=== PATIENT | female | born 1980 | race Hispanic/Latino ===

== ENCOUNTER 2021-01-23 20:26 | Emergency (ER) | payer OTHER, SELFPAY ==
[2021-01-23 22:59] LABS: Absolute Lymphocytes (CBC) 2.5 K/uL (0.7-4.9); Basophils % 0.5 % (0-1.3); Hematocrit 39.3 % (36.0-45.0); Lymphocytes % 23.5 % (15.3-44.8); MPV 6.4 fL (7.6-11.3); RBC Red Blood Cell Count 4.62 M/uL (3.86-4.86)
[2021-01-23 23:13] LABS: ALT/SGPT 25 U/L (12-78); AST/SGOT 12 U/L (15-37); Albumin 3.6 g/dL (3.4-5.0); Alkaline Phosphatase 64 U/L (45-117); BUN Blood Urea Nitrogen 17 mg/dL (7-18); Bicarbonate 27 mmol/L (21-32); Bilirubin Direct < 0.1 mg/dL (0-0.2); Bilirubin Total 0.3 mg/dL (0.2-1.0); Glucose Level 98 mg/dL (74-106); Lipase 132 U/L (73-393); Potassium 4.2 mmol/L (3.5-5.1); Protein, Total 8.1 g/dL (6.4-8.2); Sodium Level 137 mmol/L (136-145)
[2021-01-23] MEDS ORDERED: ONDANSETRON 4 MG/2 ML VIAL ONE ×2 (23:24→23:29)
[2021-01-23] MEDS ORDERED: MORPHINE 4 MG/ML SYR ONE ×2 (23:24→23:29)
[2021-01-23] MEDS ORDERED: NA CHLORIDE 0.9% 1,000 ML ONE ×2 (23:24→23:29)
[2021-01-24 00:17] LABS: Urine Blood Negative (Negative); Urine Glucose Negative (Negative); Urine Protein Negative (Negative)
[2021-01-24 01:05] LABS: Protime INR 0.97
--- NOTE | 2021-01-24 01:30 | EDPHYS ---
Physician Documentation [facility] Name: Keena Roberson Age: 40 yrs Sex: Female : 1980 Arrival Date: 01/23/2021 Time: 20:28 Bed 13 Private MD: ED Physician Lisandra Medel HPI: 01/23 23:10 This 40 yrs old Female presents to ER via Ambulatory with complaints of ma2 Breathing Difficulty, ENLARGED LIVER. 23:10 This 40 yrs old Female presents to ER via Ambulatory with complaints of ma2 Breathing Difficulty, ENLARGED LIVER. 23:10 The patient has shortness of breath with light activity. Onset: The symptoms/episode ma2 began/occurred gradually, 2 week(s) ago. Associated signs and symptoms: Pertinent positives: right upper abd pain, patient had lap nir done yrs ago , Pertinent negatives: productive cough, dizziness, hemoptysis, nausea, numbness in extremities, visual changes. Severity of symptoms: At their worst the symptoms were very mild in the emergency department the symptoms are unchanged. Historical: - Allergies: 20:41 Zoloft; bs2 20:41 tramadol; bs2 - Home Meds: 20:41 Wellbutrin 300mg Oral 1 tab daily [Active]; bs2 - PMHx: 20:41 Depression; Shingles; enlarged liver; insulin resistance; bs2 - PSHx: 20:41 section; Cholecystectomy; bs2 - Immunization history:: Client reports having NOT received the Covid vaccine. Flu vaccine is not up to date. - Social history:: Smoking status: Patient reports the use of cigarette tobacco products, Patient/guardian denies using tobacco, Stopped _ months ago 2. - Family history:: not pertinent. ROS: 23:10 Constitutional: Negative for fever, chills, and weight loss. ma2 23:10 All other systems are negative. Exam: 23:10 Constitutional: This is a well developed, well nourished patient who is awake, alert, ma2 and in no acute distress. Head/Face: Normocephalic, atraumatic. Eyes: Pupils equal round and reactive to light, extra-ocular motions intact. Lids and lashes normal. Conjunctiva and sclera are non-icteric and not injected. Cornea within normal limits. Periorbital areas with no swelling, redness, or edema. ENT: Nares patent. No nasal discharge, no septal abnormalities noted. Tympanic membranes are normal and external auditory canals are clear. Oropharynx with no redness, swelling, or masses, exudates, or evidence of obstruction, uvula midline. Mucous membranes moist. Neck: Trachea midline, no thyromegaly or masses palpated, and no cervical lymphadenopathy. Supple, full range of motion without nuchal rigidity, or vertebral point tenderness. No Meningismus. Chest/axilla: Normal chest wall appearance and motion. Nontender with no deformity. No lesions are appreciated. Cardiovascular: Regular rate and rhythm with a normal S1 and S2. No gallops, murmurs, or rubs. Normal PMI, no JVD. No pulse deficits. Respiratory: Lungs have equal breath sounds bilaterally, clear to auscultation and percussion. No rales, rhonchi or wheezes noted. No increased work of breathing, no retractions or nasal flaring. Abdomen/GI: Soft, non-tender, with normal bowel sounds. No distension or tympany. No guarding or rebound. No evidence of tenderness throughout. Skin: Warm, dry with normal turgor. Normal color with no rashes, no lesions, and no evidence of cellulitis. MS/ Extremity: Pulses equal, no cyanosis. Neurovascular intact. Full, normal range of motion. Neuro: Awake and alert, GCS 15, oriented to person, place, time, and situation. Cranial nerves II-XII grossly intact. Motor strength 5/5 in all extremities. Sensory grossly intact. Cerebellar exam normal. Normal gait. Vital Signs: 20:39 BP 123 / 85; Pulse 98; Resp 23; Temp 98.8; Pulse Ox 100% on R/A; Weight 74.84 kg (R); bs2 Height 4 ft. 11 in. (149.86 cm) (R); Pain 10/10; 23:08 BP 102 / 75; Pulse 85; Resp 18 S; Pulse Ox 97% on R/A; ad5 07/ 00:21 BP 96 / 47; Pulse 80; Resp 18 S; Pulse Ox 99% on R/A; ad5 01:30 BP 108 / 63; Pulse 86; Resp 18 S; Pulse Ox 100% on R/A; ad5 01/23 20:39 Body Mass Index 33.33 (74.84 kg, 149.86 cm) bs2 MDM: 01/23 22:17 Patient medically screened. ma2 23:10 Differential diagnosis: Anxiety Reaction asthma, hepatitis vs liver disease. 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 which she does not use at this time. she also used to take "too much" acetaminophen over the last few months. 01/24 01:28 Data reviewed: vital signs, nurses notes. Counseling: I had a detailed discussion with bal the patient and/or guardian regarding: the historical points, exam findings, and any diagnostic results supporting the discharge/admit diagnosis, the presence of at least one elevated blood pressure reading (>120/80) during this emergency department visit, the need for outpatient follow up. Response to treatment: the patient's symptoms have markedly improved after treatment. 01/23 22:16 Order name: Basic Metabolic Panel; Complete Time: 23:44 [facility] 01/23 22:16 Order name: CBC with Diff; Complete Time: 23:30 [facility] 01/23 22:16 Order name: Hepatic Function; Complete Time: 23:44 [facility] 01/23 22:16 Order name: Lipase; Complete Time: 23:44 [facility] 01/23 23:13 Order name: PT-INR [facility] 01/23 22:41 Order name: CT Abd/Pelvis - IV Contrast Only [facility] 01/23 23:13 Order name: Protime (+INR); Complete Time: 01:30 [facility] 01/23 23:18 Order name: Acetaminophen Level; Complete Time: 23:44 [facility] 01/24 00:17 Order name: Urine Dipstick-Ancillary; Complete Time: 01:06 [facility] 01/24 00:17 Order name: Urine --Ancillary (enter results) [facility] 01/23 22:16 Order name: IV Saline Lock; Complete Time: 22:44 [facility] 01/23 22:16 Order name: Labs collected and sent; Complete Time: 22:44 [facility] 01/23 22:16 Order name: Urine Dipstick-Ancillary (obtain specimen); Complete Time: 00:22 [facility] Administered Medications: 01/23 23:07 Drug: Zofran (Ondansetron) 4 mg Route: IVP; Site: left antecubital; ad5 01/24 00:22 Follow up: Response: No adverse reaction ad5 01/23 23:07 Drug: morphine 4 mg {Note: RASS 0.} Route: IVP; Site: left antecubital; ad5 01/24 00:21 Follow up: Response: No adverse reaction; Pain is decreased; RASS: Alert and Calm (0) ad5 01/23 23:07 Drug: NS 0.9% 1000 ml Route: IV; Rate: 1 bolus; Site: left antecubital; ad5 01/24 01:53 Follow up: IV Status: Completed infusion; IV Intake: 1000ml ad5 Disposition Summary: 01/24/21 01:29 Discharge Ordered Location: Home ma2 Condition: Stable ma2 Diagnosis - Abdominal pain, Generalized ma2 Followup: ma2 - With: Private Physician - When: Tomorrow - Reason: If symptoms return Followup: ma2 - With: Selvin Chi MD - When: Tomorrow - Reason: Continuance of care Discharge Instructions: - Discharge Summary Sheet ma2 - Abdominal Pain, Adult ma2 Forms: - Medication Reconciliation Form ma2 - Thank You Letter ma2 - Antibiotic Education ma2 - Prescription Opioid Use ma2 Prescriptions: - Zofran 4 mg Oral Tablet - take 1 tablet by ORAL route every 12 hours As needed; 20 tablet; Refills: 0, ma2 Product Selection Permitted - Diclofenac Sodium 75 mg Oral Tablet Sustained Release - take 1 tablet by ORAL route 2 times per day; 30 tablet; Refills: 0, Product ma2 Selection Permitted Signatures: Dispatcher [employer] EDMS Lisandra Medel MD MD ma2 Gregorio Marroquin Bridget bs2 Corrections: (The following items were deleted from the chart) 01/23 20:44 20:41 Allergies: No Known Allergies; bs2 bs2 23:17 23:13 ACETAMINOPHEN+C.LAB.BRZ ordered. EDMS EDMS
--- NOTE | 2021-01-24 01:30 | ER ---
Nurse's Notes [facility] Name: Keena Roberson Age: 40 yrs Sex: Female : 1980 Arrival Date: 01/23/2021 Time: 20:28 Bed 13 Private MD: Diagnosis: Abdominal pain, Generalized Presentation: 01/23 20:39 Chief complaint: Patient states: pt states she has an enlarged liver, painful for last bs2 3 days, SOB. Coronavirus screen: Client denies travel out of the [place] in the last 14 days. At this time, the client does not indicate any symptoms associated with coronavirus-19. Ebola Screen: Patient negative for fever greater than or equal to 101.5 degrees Fahrenheit, and additional compatible Ebola Virus Disease symptoms Patient denies exposure to infectious person. Patient denies travel to an Ebola-affected area in the 21 days before illness onset. Initial Sepsis Screen: Does the patient meet any 2 criteria? RR > 20 per min. HR > 90 bpm. Does the patient have a suspected source of infection? No. Patient's initial sepsis screen is negative. Risk Assessment: Do you want to hurt yourself or someone else? Patient reports no desire to harm self or others. Onset of symptoms was January 20, 2021. 20:39 Method Of Arrival: Ambulatory bs2 20:39 Acuity: NARAYAN 3 bs2 Triage Assessment: 20:41 General: Appears distressed, uncomfortable, obese, well groomed, well developed, well bs2 nourished, Behavior is cooperative, appropriate for age, anxious, crying. Pain: Complains of pain in anterior aspect of right lateral abdomen and right upper quadrant. Respiratory: Reports shortness of breath at rest Onset: The symptoms/episode began/occurred gradually, the patient has mild shortness of breath. Historical: - Allergies: 20:41 Zoloft; bs2 20:41 tramadol; bs2 - Home Meds: 20:41 Wellbutrin 300mg Oral 1 tab daily [Active]; bs2 - PMHx: 20:41 Depression; Shingles; enlarged liver; insulin resistance; bs2 - PSHx: 20:41 section; Cholecystectomy; bs2 - Immunization history:: Client reports having NOT received the Covid vaccine. Flu vaccine is not up to date. - Social history:: Smoking status: Patient reports the use of cigarette tobacco products, Patient/guardian denies using tobacco, Stopped _ months ago 2. - Family history:: not pertinent. Screenin:44 Abuse screen: Denies threats or abuse. Denies injuries from another. Nutritional ad5 screening: No deficits noted. Tuberculosis screening: No symptoms or risk factors identified. Fall Risk None identified. Assessment: 22:30 General: Appears uncomfortable, Behavior is calm, cooperative, appropriate for age. ad5 Pain: Complains of pain in RUQ abd, radiates to back. Cardiovascular: No deficits noted. Heart tones present Capillary refill < 3 seconds Patient's skin is warm and dry. Rhythm is regular. Respiratory: No deficits noted. Airway is patent Respiratory effort is even, unlabored, Breath sounds are clear bilaterally. GI: Abdomen is round Bowel sounds present X 4 quads. Abdomen is tender to palpation in epigastric area and right upper quadrant Reports upper abdominal pain, nausea. : No deficits noted. No signs and/or symptoms were reported regarding the genitourinary system. Derm: Skin is pink, warm \T\ dry. 23:30 Reassessment: Patient appears in no apparent distress at this time. No changes from ad5 previously documented assessment. Patient and/or family updated on plan of care and expected duration. Pain level reassessed. Patient is alert, oriented x 3, equal unlabored respirations, skin warm/dry/pink. 01/24 00:21 Reassessment: Patient appears in no apparent distress at this time. Patient and/or ad5 family updated on plan of care and expected duration. Pain level reassessed. Patient states symptoms have improved. 01:45 Reassessment: Patient appears in no apparent distress at this time. Patient and/or ad5 family updated on plan of care and expected duration. Pain level reassessed. Patient is alert, oriented x 3, equal unlabored respirations, skin warm/dry/pink. Patient states feeling better. Vital Signs: 01/23 20:39 BP 123 / 85; Pulse 98; Resp 23; Temp 98.8; Pulse Ox 100% on R/A; Weight 74.84 kg (R); bs2 Height 4 ft. 11 in. (149.86 cm) (R); Pain 10/10; 23:08 BP 102 / 75; Pulse 85; Resp 18 S; Pulse Ox 97% on R/A; ad5 07/01 00:21 BP 96 / 47; Pulse 80; Resp 18 S; Pulse Ox 99% on R/A; ad5 01:30 BP 108 / 63; Pulse 86; Resp 18 S; Pulse Ox 100% on R/A; ad5 01/23 20:39 Body Mass Index 33.33 (74.84 kg, 149.86 cm) bs2 ED Course: 01/23 20:28 Patient arrived in ED. es 20:41 Triage completed. bs2 20:41 Arm band placed on left wrist. bs2 22:16 Lisandra Medel MD is Attending Physician. ma2 22:19 Gregorio Marroquin is Primary Nurse. ad5 22:30 Patient has correct armband on for positive identification. Placed in gown. Bed in low ad5 position. Call light in reach. Side rails up X2. Adult w/ patient. Pulse ox on. NIBP on. Door closed. Noise minimized. Warm blanket given. Head of bed lowered. 23:42 CT Abd/Pelvis - IV Contrast Only Sent. ad5 01/24 00:19 CT Abd/Pelvis - IV Contrast Only In Process Unspecified. EDMS 01:29 Selvin Chi MD is Referral Physician. ma2 01:59 No provider procedures requiring assistance completed. IV discontinued, intact, ad5 bleeding controlled, No redness/swelling at site. Pressure dressing applied. Administered Medications: 01/23 23:07 Drug: Zofran (Ondansetron) 4 mg Route: IVP; Site: left antecubital; ad5 01/24 00:22 Follow up: Response: No adverse reaction ad5 01/23 23:07 Drug: morphine 4 mg {Note: RASS 0.} Route: IVP; Site: left antecubital; ad5 01/24 00:21 Follow up: Response: No adverse reaction; Pain is decreased; RASS: Alert and Calm (0) ad5 01/23 23:07 Drug: NS 0.9% 1000 ml Route: IV; Rate: 1 bolus; Site: left antecubital; ad5 01/24 01:53 Follow up: IV Status: Completed infusion; IV Intake: 1000ml ad5 Intake: 01:53 IV: 1000ml; Total: 1000ml. ad5 Outcome: :29 Discharge ordered by . ma2 01:59 Discharged to home ambulatory, with family. ad5 01:59 Condition: stable 01:59 Discharge instructions given to patient, Instructed on discharge instructions, follow up and referral plans. medication usage, Demonstrated understanding of instructions, follow-up care, medications, Prescriptions given X 2. 02:00 Patient left the ED. ad5 Signatures: Dispatcher [employer] Neetu Polanco Mohammad, MD MD ma2 Gregorio Marroquin Bridget bs2 Corrections: (The following items were deleted from the chart) 01/23 20:44 20:41 Allergies: No Known Allergies; bs2 bs2
[2021-01-24 02:05] VITALS: TEMP 98.8
[2021-01-24 02:09] VITALS: BP 108/63; O2SAT 100
--- NOTE | 2021-01-24 10:35 | RAD REPORT ---
EXAM DESCRIPTION: Abdomen Pelvis W Contrast RadLex: CT ABDOMEN PELVIS WITH IV CONTRAST CLINICAL HISTORY: ABD PAIN. COMPARISON: None. TECHNIQUE: CT of the abdomen and pelvis was performed following intravenous administration of iodina jenny contrast. Arterial phase images through the abdomen, and portal venous phase images through the a bdomen and pelvis were obtained. Oral contrast was not administered. Axial, coronal, and sagittal sof t tissue window reconstructions were created and sent to PACS. This exam was performed according to our departmental dose-optimization program, which includes autom ated exposure control, adjustment of the mA and/or kV according to patient size and/or use of iterati ve reconstruction technique. FINDINGS: Thoracic: No significant abnormality. Hepatobiliary: No concerning hepatic lesion identified. The hepatic and portal veins are patent. Prio r cholecystectomy with mild prominence of the central intrahepatic ducts and common bile duct, measur ing up to 0.7 cm in diameter, with smooth tapering towards the ampulla. Pancreas: Unremarkable. Spleen: Unremarkable. Gastrointestinal: No evidence of bowel obstruction or perienteric inflammation. The appendix is antony l. Adrenals: No abnormality identified in either adrenal gland. Renal: . Tiny bilateral renal hypodensities, likely cysts. No concerning parenchymal abnormality in e ither kidney. No hydronephrosis or urolithiasis. Bladder/Reproductive: Unremarkable appearance of the urinary bladder by CT technique. Unremarkable CT appearance of the uterus and ovaries. Vascular/Lymphatics: No lymphadenopathy identified by CT size criteria. Abdominal aorta is normal in caliber. The major visceral vessels are patent. Nonspecific mild prominence of the parametrial vessel s, and mild prominence and early enhancement of the left ovarian vein. Musculoskeletal: No concerning osseous lesion identified. Transitional lumbosacral vertebral body, wi th osseous fusions bilaterally. Mild spinal degenerative changes. Fluid / peritoneum: No significant free fluid. No free intraperitoneal air identified. IMPRESSION 1. No acute abnormality identified in the abdomen or pelvis by CT. 2. Prior cholecystectomy with mild prominence of the central intrahepatic ducts and common bile jj t, favored postsurgical in etiology. Consider correlation with LFTs. 3. Nonspecific mild prominence of the parametrial vessels, and mild prominence and early enhancemen t of the left ovarian vein. Correlate for symptoms of pelvic congestion syndrome. Electronically signed by: Nadeen Pringle MD 01/24/2021 12:45 AM CDT Due to temporary technical issues with the PACS/Fluency reporting system, reports are being signed by the in house radiologist without review as a courtesy to ensure prompt reporting. The interpreting r adiologist is fully responsible for the content of the report.
== END 2021-01-24 02:00 | disposition home or self-care (01) ==
LOC: ER 20:26
DX: R10.84 Generalized abdominal pain (principal); F32.9 Major depressive disorder, single episode, unspecified; Z88.5 Allergy status to narcotic agent; Z87.891 Personal history of nicotine dependence
CPT/HCPCS: 36415; 74177; 80048; 80076; 80329; 81003; 81025; 83690; 85025; 85610; 96361; 96374; 96375; 99284; J2405; J7030; Q9967

== ENCOUNTER 2022-06-20 14:51 | Emergency (ER) | payer OTHER ==
[2022-06-20] MEDS ORDERED: ONDANSETRON 4 MG/2 ML VIAL ONE (16:51)
[2022-06-20] MEDS ORDERED: NA CHLORIDE 0.9% 1,000 ML ONE (16:51)
[2022-06-20] MEDS ORDERED: MORPHINE 4 MG/ML SYR ONE (16:51)
[2022-06-20 17:23] LABS: Absolute Lymphocytes (CBC) 2.2 K/uL (0.7-4.9); Lymphocytes % 26.3 % (15.3-44.8); MCV 87.7 fL (80-100); RBC Red Blood Cell Count 3.99 M/uL (3.86-4.86)
[2022-06-20 17:42] LABS: Albumin 3.3 g/dL (3.4-5.0); Bilirubin Total 0.2 mg/dL (0.2-1.0); Potassium 3.3 mmol/L (3.5-5.1)
[2022-06-20 18:35] LABS: Urine Blood Negative (Negative); Urine Glucose Negative (Negative); Urine Protein Negative (Negative); Urine Specific Gravity >=1.030 (1.005-1.030); Urine pH 5.5 (5.0-7.0)
[2022-06-20 18:57] LABS: Urine Mucus 2+ /HPF (None Seen); Urine RBC <5 /HPF (None Seen)
[2022-06-20 19:42] LABS: Urine Specific Gravity/Preg >1.030 (1.005-1.030)
--- NOTE | 2022-06-20 19:44 | RAD REPORT ---
EXAM DESCRIPTION: CT - Abdomen Pelvis W Contrast - 06/20/2022 7:35 pm CLINICAL HISTORY: Abdominal pain COMPARISON: 2020 TECHNIQUE: Computed axial tomography of the abdomen pelvis was obtained. 100 cc Isovue-300 was admin istered intravenously. Oral contrast was not requested which limits evaluation of bowel and appendix All CT scans are performed using dose optimization technique as appropriate and may include automated exposure control or mA/KV adjustment according to patient size. FINDINGS: Cholecystectomy. Fatty infiltration of the liver. Hepatomegaly. Spleen, pancreas, adrenals and kidneys are unremarkable. Normal appendix. No evidence diverticulitis. No adnexal mass. Tiny umbilical hernia IMPRESSION: Hepatomegaly with fatty infiltration
[2022-06-20] MEDS ORDERED: POTASSIUM 25 MEQ EFFERV TAB ONE (20:13)
--- NOTE | 2022-06-20 20:22 | ER ---
Nurse's Notes [facility] Name: Keena Roberson Age: 41 yrs Sex: Female : 1980 Arrival Date: 06/20/2022 Time: 14:53 Bed 15 Private MD: Diagnosis: Diarrhea, unspecified;Abdominal pain, unspecified Presentation: 06/20 15:22 Chief complaint: Intermittent RLQ pain, nausea, and diarrhea x 2 weeks. Coronavirus hb screen: At this time, the client does not indicate any symptoms associated with coronavirus-19. Ebola Screen: No symptoms or risks identified at this time. Initial Sepsis Screen: Does the patient meet any 2 criteria? No. Patient's initial sepsis screen is negative. Does the patient have a suspected source of infection? No. Patient's initial sepsis screen is negative. Risk Assessment: Do you want to hurt yourself or someone else? Patient reports no desire to harm self or others. Onset of symptoms was June 07, 2022. 15:22 Method Of Arrival: Ambulatory hb 15:22 Acuity: NARAYAN 3 hb Triage Assessment: 15:30 General: Appears in no apparent distress. Behavior is calm, cooperative. Neuro: Level hb of Consciousness is awake, alert, obeys commands, Oriented to person, place, time, situation. Cardiovascular: Patient's skin is warm and dry. Respiratory: Respiratory effort is even, unlabored, Respiratory pattern is regular, symmetrical. FIBERGLASSER: 19:00 unknown pf1 Historical: - Allergies: 15:27 Zoloft; hb 15:27 tramadol; hb - Home Meds: 15:27 Wellbutrin 300mg Oral 1 tab daily [Active]; Trulicity subcutaneous [Active]; hb Glimepiride Oral [Active]; Lisinopril Oral [Active]; gabapentin oral [Active]; Valacyclovir Oral [Active]; 15:29 Simvastatin Oral [Active]; duloxetine oral [Active]; hb - PMHx: 15:27 Depression; enlarged liver; Insulin Resistance; shingles; hb - PSHx: 15:27 section; Cholecystectomy; hb - Immunization history:: Adult Immunizations up to date. - Social history:: Smoking status: Patient denies any tobacco usage or history of. Screenin:00 Abuse screen: Denies threats or abuse. pf1 19:00 Nutritional screening: No deficits noted. pf1 19:00 Tuberculosis screening: No symptoms or risk factors identified. Fall Risk None pf1 identified. IV access (20 points). Assessment: 17:14 General: Appears in no apparent distress. comfortable, Behavior is calm, cooperative, kr3 appropriate for age. Pain: Complains of pain in abdomen. Neuro: Level of Consciousness is awake, alert, obeys commands. Neuro: Cardiovascular: Patient's skin is warm and dry. Respiratory: Airway is patent Respiratory effort is even, unlabored, Respiratory pattern is regular, symmetrical. GI: Abdomen is round obese. : No signs and/or symptoms were reported regarding the genitourinary system. EENT: No signs and/or symptoms were reported regarding the EENT system. Derm: No signs and/or symptoms reported regarding the dermatologic system. Musculoskeletal: Circulation, motion, and sensation intact. 19:15 Reassessment: Patient appears in no apparent distress at this time. Patient is alert, pf1 oriented x 3, equal unlabored respirations, skin warm/dry/pink. Patient states symptoms have improved. 19:15 General: Appears in no apparent distress. comfortable, well groomed, well developed, pf1 Behavior is calm, cooperative, appropriate for age, quiet. Pain: Complains of pain in Patient C/O LLQ abdomen and right pelvis,onset 2 weeks with nausea. Neuro: No deficits noted. Cardiovascular: No deficits noted. Respiratory: No deficits noted. GI: Abdomen is round Stools are reported to be loose, diarrhea. Last BM was June 20, 2022. Reports constipation, diarrhea, nausea. GI: Patient C/O diarrhea 5 episodes today,onset 3 weeks with nausea and intermittent constipation for 2 weeks. Patient stated was started on an antibiotic per Dr. Mireles. Patient stated followed up with Dr. Mireles on Thursday. : No deficits noted. EENT: No deficits noted. Derm: No deficits noted. Vital Signs: 15:22 BP 142 / 86; Pulse 106; Resp 20; Temp 98.7; Pulse Ox 99% on R/A; Weight 90.72 kg; hb Height 4 ft. 11 in. (149.86 cm); Pain 8/10; 17:15 BP 109 / 63; Pulse 89; Resp 18; Pulse Ox 100% on R/A; kr3 19:00 BP 111 / 52; Pulse 87; Resp 18; Temp 98.2; Pulse Ox 100% ; Pain 8/10; pf1 20:30 BP 106 / 69; Pulse 89; Resp 18; Temp 98; Pulse Ox 97% ; Pain 8/10; pf1 15:22 Body Mass Index 40.39 (90.72 kg, 149.86 cm) hb ED Course: 14:53 Patient arrived in ED. jj6 14:55 Jackson Quintana PA is PHCP. cp 14:55 Jackson Nogueira MD is Attending Physician. cp 15:25 Triage completed. hb 15:29 Arm band placed on. hb 16:39 Cornelia Burton RN is Primary Nurse. kr3 19:00 Patient has correct armband on for positive identification. Bed in low position. Call pf1 light in reach. 19:00 No provider procedures requiring assistance completed. pf1 19:00 IV is patent, is intact, Flushed right antecubital. pf1 19:37 CT Abd/Pelvis - IV Contrast Only In Process Unspecified. EDMS 20:21 Selvin Chi MD is Referral Physician. cp 20:45 IV discontinued, intact, bleeding controlled, No redness/swelling at site. Pressure pf1 dressing applied. 20:58 Ova And Parasites Sent. pf1 20:58 Rotavirus Antigen Sent. pf1 20:58 Stool Culture Sent. pf1 Administered Medications: 17:13 Drug: Zofran (Ondansetron) 4 mg Route: IVP; Site: right antecubital; kr3 20:20 Follow up: Response: No adverse reaction; Marked relief of symptoms kl 17:13 Drug: morphine 4 mg Route: IVP; Infused Over: 4 mins; Site: right antecubital; kr3 19:00 Follow up: Response: No adverse reaction; Pain is decreased pf1 17:13 Drug: NS 0.9% 1000 ml Route: IV; Rate: 1 bolus; Site: right antecubital; kr3 19:00 Follow up: IV Status: Completed infusion; IV Intake: 1000ml pf1 20:19 Follow up: IV Status: Completed infusion; IV Intake: 1000ml kl 20:19 Drug: Potassium Effervescent Tablet 50 mEq Route: PO; kl 20:20 Follow up: Response: No adverse reaction kl 20:45 Follow up: Response: No adverse reaction pf1 Medication: 19:00 VIS not applicable for this client. pf1 Intake: 19:00 IV: 1000ml; Total: 1000ml. pf1 20:19 IV: 1000ml; Total: 2000ml. kl Outcome: 20:21 Discharge ordered by . cp 20:45 Discharged to home ambulatory, with family. pf1 20:45 Condition: improved pf1 20:45 Discharge instructions given to patient, Instructed on discharge instructions, follow up and referral plans. Demonstrated understanding of instructions, follow-up care, medications, Prescriptions given X 2. 21:02 Patient left the ED. kl Signatures: Dispatcher [employer] EDMS Maame Berry RN RN Jackson Ramírez PA PA cp Baxter, Heather, RN RN Nicolasa Jenkins Kelley, RN RN kr3 Lupe jenkins RN RN pf1
--- NOTE | 2022-06-20 20:22 | EDPHYS ---
Physician Documentation [facility] Name: Keena Roberson Age: 41 yrs Sex: Female : 1980 Arrival Date: 06/20/2022 Time: 14:53 Bed 15 Private MD: ED Physician Jackson Nogueira HPI: 06/20 17:00 This 41 yrs old Female presents to ER via Ambulatory with complaints of cp Abdominal Pain, Diarrhea. 17:00 The patient presents with abdominal pain in the lower abdomen, in the periumbilical cp area. Onset: The symptoms/episode began/occurred 2 week(s) ago. The symptoms do not radiate. Associated signs and symptoms: Pertinent positives: diarrhea, nausea, with intermittent constipation, Pertinent negatives: blood in stools, chest pain, dysuria, fever, vomiting. The symptoms are described as waxing/waning. Severity of pain: in the emergency department the pain is unchanged despite home interventions. 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 - Social history:: Smoking status: Patient denies any tobacco usage or history of. ROS: 17:05 Constitutional: Negative for body aches, chills, fever, poor PO intake. cp 17:05 Eyes: Negative for injury, pain, redness, and discharge. cp 17:05 ENT: Negative for drainage from ear(s), ear pain, sore throat, difficulty swallowing, difficulty handling secretions. 17:05 Cardiovascular: Negative for chest pain, edema, palpitations. 17:05 Respiratory: Negative for cough, shortness of breath, wheezing. 17:05 Abdomen/GI: Positive for abdominal pain, nausea, diarrhea, Negative for vomiting, anorexia, black/tarry stool, rectal bleeding. 17:05 : Negative for urinary symptoms. 17:05 Neuro: Negative for altered mental status, headache, syncope, weakness. 17:05 All other systems are negative. Exam: 17:10 Constitutional: The patient appears in no acute distress, alert, awake, cp non-diaphoretic, non-toxic, well developed, well nourished, overweight 17:10 Head/Face: Normocephalic, atraumatic. cp 17:10 Eyes: Periorbital structures: appear normal, Conjunctiva: normal, no exudate, no injection, Sclera: no appreciated abnormality, Lids and lashes: appear normal, bilaterally. 17:10 ENT: External ear(s): are unremarkable, Nose: is normal, Mouth: Lips: moist, Oral mucosa: pink and intact, moist, Posterior pharynx: Airway: no evidence of obstruction, patent, erythema, is not appreciated, exudate, is not appreciated. 17:10 Chest/axilla: Inspection: normal. 17:10 Cardiovascular: Rate: tachycardic, Rhythm: regular, Edema: is not appreciated, JVD: is not appreciated. 17:10 Respiratory: the patient does not display signs of respiratory distress, Respirations: normal, no use of accessory muscles, no retractions, labored breathing, is not present, Breath sounds: are clear throughout, no decreased breath sounds, no stridor, no wheezing. 17:10 Abdomen/GI: Inspection: obese Bowel sounds: active, all quadrants, Palpation: soft, in all quadrants, moderate abdominal tenderness, in the umbilical area and right lower quadrant, voluntary guarding, is elicited in the umbilical area and right lower quadrant. 17:10 Back: CVA tenderness, is absent. 17:10 Skin: cellulitis, is not appreciated, no rash present. Vital Signs: 15:22 BP 142 / 86; Pulse 106; Resp 20; Temp 98.7; Pulse Ox 99% on R/A; Weight 90.72 kg; hb Height 4 ft. 11 in. (149.86 cm); Pain 8/10; 17:15 BP 109 / 63; Pulse 89; Resp 18; Pulse Ox 100% on R/A; kr3 19:00 BP 111 / 52; Pulse 87; Resp 18; Temp 98.2; Pulse Ox 100% ; Pain 8/10; pf1 20:30 BP 106 / 69; Pulse 89; Resp 18; Temp 98; Pulse Ox 97% ; Pain 8/10; pf1 15:22 Body Mass Index 40.39 (90.72 kg, 149.86 cm) hb MDM: 15:31 Patient medically screened. demetris 18:00 Differential diagnosis: diverticulitis, gastritis, non-specific abd pain, pancreatitis, cp Pyelonephritis, Ureterolithiasis, urinary tract infection. 20:20 Data reviewed: vital signs, nurses notes, lab test result(s), radiologic studies, CT cp scan. 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 Special discussion: Based on the patient's Hx, exam, and Dx evaluation, there is no indication for emergent surgery or inpatient Tx. It is understood by the patient/guardian that if the Sx's persist or worsen they need to return immediately for re-evaluation. 06/20 16:20 Order name: CBC with Diff; Complete Time: 18:06 06/20 18:06 Interpretation: Normal except: HCT 35.0; MPV 6.0. 06/20 16:20 Order name: CMP; Complete Time: 18:06 06/20 16:20 Order name: Lipase; Complete Time: 18:06 06/20 16:20 Order name: Urine Microscopic Only; Complete Time: 19:05 06/20 18:36 Order name: Urine Dipstick-Ancillary; Complete Time: 19:05 EDMS 06/20 18:39 Order name: Urine --Ancillary (enter results); Complete Time: 19:59 em1 06/20 19:59 Interpretation: Reviewed. 06/20 16:20 Order name: CT Abd/Pelvis - IV Contrast Only; Complete Time: 19:59 06/20 19:59 Interpretation: Report reviewed. 06/20 19:22 Order name: Glucose, Ancillary Testing; Complete Time: 19:59 EDMS 06/20 20:06 Order name: Ova And Parasites 06/20 20:06 Order name: Rotavirus Antigen cp 06/20 20:06 Order name: Stool Culture cp 06/20 20:06 Order name: CDIFF cp 06/20 16:20 Order name: IV Saline Lock; Complete Time: 17:13 cp 06/20 16:20 Order name: Labs collected and sent; Complete Time: 17:13 cp 06/20 16:20 Order name: Urine Dipstick-Ancillary (obtain specimen); Complete Time: 18:38 cp 06/20 16:20 Order name: Urine Test (obtain specimen); Complete Time: 18:38 cp Administered Medications: 17:13 Drug: Zofran (Ondansetron) 4 mg Route: IVP; Site: right antecubital; kr3 20:20 Follow up: Response: No adverse reaction; Marked relief of symptoms kl 17:13 Drug: morphine 4 mg Route: IVP; Infused Over: 4 mins; Site: right antecubital; kr3 19:00 Follow up: Response: No adverse reaction; Pain is decreased pf1 17:13 Drug: NS 0.9% 1000 ml Route: IV; Rate: 1 bolus; Site: right antecubital; kr3 19:00 Follow up: IV Status: Completed infusion; IV Intake: 1000ml pf1 20:19 Follow up: IV Status: Completed infusion; IV Intake: 1000ml kl 20:19 Drug: Potassium Effervescent Tablet 50 mEq Route: PO; kl 20:20 Follow up: Response: No adverse reaction kl 20:45 Follow up: Response: No adverse reaction pf1 Disposition Summary: 06/20/22 20:21 Discharge Ordered Location: Home cp Problem: new cp Symptoms: have improved cp Condition: Stable cp Diagnosis - Diarrhea, unspecified cp - Abdominal pain, unspecified cp Followup: cp - With: Selvin Chi MD - When: 2 - 3 days - Reason: Recheck today's complaints Discharge Instructions: - Discharge Summary Sheet cp - Abdominal Pain, Adult cp - Food Choices to Help Relieve Diarrhea, Adult cp - Diarrhea, Adult cp Forms: - Medication Reconciliation Form cp - Thank You Letter cp - Antibiotic Education cp - Prescription Opioid Use cp Prescriptions: - Zofran 4 mg Oral Tablet - take 1 tablet by ORAL route every 12 hours As needed; 20 tablet; Refills: 0, cp Product Selection Permitted - dicyclomine 20 mg Oral Tablet - take 1 tablet by ORAL route 4 times per day; 30 tablet; Refills: 0, Product cp Selection Permitted Signatures: Dispatcher [employer] Maame Penaloza RN Jackson Smith MD MD cha Page, Corey, PA PA cp Nita Yo RN RN hb Reid, Kelley, RN RN kr3 Lupe jenkins RN pf1 Corrections: (The following items were deleted from the chart) 06/21:00 This 41 yrs old Female presents to ER via Ambulatory with cp complaints of Abdominal Pain, Diarrhea. cp 06/21 19:06/20 20:00 The patient presents with abdominal pain in the lower abdomen, in the cp periumbilical area. 06/21:00 Onset: The symptoms/episode began/occurred 2 week(s) ago, cp 06/21 20: The symptoms do not radiate. cp 06/21: Associated signs and symptoms: Pertinent positives: diarrhea, nausea, with cp intermittent constipation, Pertinent negatives: blood in stools, chest pain, dysuria, fever, vomiting, cp 06/21:00 The symptoms are described as waxing/waning, cp 06/21 20:00 Severity of pain: in the emergency department the pain is unchanged despite cp home interventions, 06/21 19:09 19:05 Differential diagnosis: diverticulitis, gastritis, non-specific abd pain, cp pancreatitis, Pyelonephritis, Ureterolithiasis, urinary tract infection, cp
[2022-06-20 21:10] VITALS: BP 106/69; TEMP 98; O2SAT 97
[2022-06-21 11:37] LABS: C.diff Antigen/Toxin Ag neg : Tox neg (NEG : NEG)
== END 2022-06-20 21:02 | disposition home or self-care (01) ==
LOC: ER 14:51
DX: R19.7 Diarrhea, unspecified (principal); R10.31 Right lower quadrant pain; Z88.5 Allergy status to narcotic agent; Z88.8 Allergy status to other drugs, medicaments and biological substances
CPT/HCPCS: 96361; 87045; 85025; 36415; 87177; 81025; 82947; 87046; 87209; 87324; 83690; 80053; 87425; 74177; 96375; 96374; 99284; Q9967; J7030; J2405; 81003; 81015

== ENCOUNTER 2022-09-26 17:56 | Emergency (ER) | payer OTHER ==
[2022-09-26 19:13] LABS: Absolute Lymphocytes (CBC) 2.1 K/uL (0.7-4.9); Hematocrit 36.8 % (36.0-45.0); Lymphocytes % 35.5 % (15.3-44.8); MCV 89.8 fL (80-100); MPV 6.3 fL (7.6-11.3); RBC Red Blood Cell Count 4.09 M/uL (3.86-4.86)
--- NOTE | 2022-09-26 19:15 | RAD REPORT ---
EXAM DESCRIPTION: CT - Head Brain Wo Cont - 09/26/2022 7:04 pm CLINICAL HISTORY: Headache COMPARISON: 2011 MRI TECHNIQUE: Computed axial tomography of the head was obtained. IV contrast was not requested. All CT scans are performed using dose optimization technique as appropriate and may include automated exposure control or mA/KV adjustment according to patient size. FINDINGS: An intracranial bleed is not seen The ventricles are normal in caliber No significant hypodense areas within the brain visualized No extra-axial fluid collection is noted. Fluid within the sinuses/ mastoids is not seen IMPRESSION: No acute intracranial abnormality is seen If patient's symptoms persist MRI of the brain would be recommended
[2022-09-26 19:18] LABS: Protime INR 0.95
[2022-09-26 19:34] LABS: Magnesium 2.4 mg/dL (1.6-2.4)
[2022-09-26 19:41] LABS: Potassium 2.8 mmol/L (3.5-5.1)
[2022-09-26 20:12] LABS: Urine Blood 3+ (Negative); Urine Glucose Negative (Negative); Urine Protein 2+ (Negative); Urine Specific Gravity >=1.030 (1.005-1.030); Urine pH 5.5 (5.0-7.0)
[2022-09-26 20:19] LABS: Transitional Epithelial <5 /HPF (None Seen); Urine Bacteria 20-50 /HPF (<20); Urine Mucus 4+ /HPF (None Seen)
[2022-09-26] MEDS ORDERED: D50W 25 GM/50 ML SYRINGE IV ONE (20:20)
[2022-09-26] MEDS ORDERED: POTASSIUM 25 MEQ EFFERV TAB ONE ×2 (20:20→22:45)
[2022-09-26] MEDS ORDERED: LORazepam 2 MG/ML VIAL ONE (20:20)
[2022-09-26 20:25] LABS: Barbiturates NEGATIVE (NEGATIVE); Benzodiazepines NEGATIVE (NEGATIVE); Cocaine NEGATIVE (NEGATIVE); METHAMPHETAM POSITIVE (NEGATIVE); Methadone NEGATIVE (NEGATIVE); Opiates NEGATIVE (NEGATIVE); Phencyclidine NEGATIVE (NEGATIVE); THC Cannibis NEGATIVE (NEGATIVE)
[2022-09-26 20:53] LABS: SARS-COV-2 RT PCR NEGATIVE (NEGATIVE)
[2022-09-26 20:56] LABS: Urine Specific Gravity/Preg >1.030 (1.005-1.030)
[2022-09-26] MEDS ORDERED: CEFTRIAXONE 1000 MG/VIAL ONE (20:56)
--- NOTE | 2022-09-26 23:05 | ER ---
Nurse's Notes [facility] Name: Keena Roberson Age: 42 yrs Sex: Female : 1980 Arrival Date: 09/26/2022 Time: 17:58 Bed 4 Private MD: Diagnosis: UTI/ Urinary tract infection, site not specified;Hypokalemia;Headache;Weakness;Low back pain;Pain in left leg Presentation: 09/26 18:08 Chief complaint: Patient states: Reports receiving a massage from friend today on lower ld1 back pain. After back massage - pt reports having left leg pain, lower back pain, near syncopal episode/possible seizure, body jerks, eye jerking, facial pain. Denies falling. Coronavirus screen: At this time, the client does not indicate any symptoms associated with coronavirus-19. Ebola Screen: No symptoms or risks identified at this time. Initial Sepsis Screen: Does the patient meet any 2 criteria? No. Patient's initial sepsis screen is negative. Does the patient have a suspected source of infection? No. Patient's initial sepsis screen is negative. Risk Assessment: Do you want to hurt yourself or someone else? Patient reports no desire to harm self or others. Onset of symptoms was September 26, 2022. 18:08 Method Of Arrival: Wheelchair ld1 18:08 Acuity: NARAYAN 3 ld1 Triage Assessment: 18:10 General: Appears in no apparent distress. comfortable, Behavior is calm, cooperative, ld1 appropriate for age. Pain: Complains of pain in low back area Pain does not radiate. Pain currently is 8 out of 10 on a pain scale. EENT: No signs and/or symptoms were reported regarding the EENT system. Neuro: Level of Consciousness is awake, alert, obeys commands, Oriented to person, place, time, situation, Reports a syncopal episode Seizure activity reported prior to arrival. POSSIBLE SEIZURE. Cardiovascular: Capillary refill < 3 seconds Patient's skin is warm and dry. Rhythm is sinus rhythm. Respiratory: Airway is patent Respiratory effort is even, unlabored. GI: Abdomen is round non-distended. : No signs and/or symptoms were reported regarding the genitourinary system. Derm: No signs and/or symptoms reported regarding the dermatologic system. Musculoskeletal: No signs and/or symptoms reported regarding the musculoskeletal system. 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 - Social history:: Smoking status: Patient reports the use of cigarette tobacco products, denies chronic smoking, but will smoke occasionally, Patient/guardian denies using alcohol. Screenin:01 [facility] ED Fall Risk Assessment (Adult) History of falling in the last 3 months, iw including since admission No falls in past 3 months (0 pts). Abuse screen: Denies threats or abuse. Denies injuries from another. Nutritional screening: No deficits noted. Tuberculosis screening: No symptoms or risk factors identified. Assessment: 19:02 General: Appears in no apparent distress. Behavior is drowsy. Pain: Complains of pain iw in low back area. Neuro: Level of Consciousness is. Respiratory: Airway is patent Respiratory effort is even, unlabored. 20:27 General: Appears in no apparent distress. Behavior is anxious, drowsy. Pain: Complains iw of pain in back and low back area. Neuro: Level of Consciousness is awake, obeys commands, Oriented to person, place, time, situation, Appropriate for age. Cardiovascular: Patient's skin is warm and dry. Rhythm is regular. Respiratory: Airway is patent Respiratory effort is even, unlabored, Respiratory pattern is regular, symmetrical. GI: Abdomen is round non-distended, Abd is soft and non tender X 4 quads. : Urine is cloudy. EENT: No signs and/or symptoms were reported regarding the EENT system. Derm: Skin is pink, warm \T\ dry. Musculoskeletal: Range of motion: intact in all extremities, Reports spasms in legs. 21:02 Neuro: Level of Consciousness is awake, alert, obeys commands, Oriented to person, mb9 place, time, situation, Appropriate for age. Cardiovascular: Rhythm is regular. Respiratory: Airway is patent Respiratory effort is even, unlabored, Respiratory pattern is regular, symmetrical. Derm: Skin is pink, warm \T\ dry. 22:05 Reassessment: Ultrasound at bedside. mb9 Vital Signs: 18:08 BP 117 / 84; Pulse 81; Resp 18; Temp 98.3(O); Pulse Ox 100% on R/A; Weight 81.65 kg; ld1 Height 4 ft. 11 in. (149.86 cm); Pain 8/10; 20:28 BP 126 / 76; Pulse 83; Resp 17; Pulse Ox 98% on R/A; iw 21:01 BP 127 / 80; Pulse 84; Resp 16; Pulse Ox 100% ; mb9 23:19 BP 112 / 71; Pulse 78; Resp 20 S; Pulse Ox 100% on R/A; as6 18:08 Body Mass Index 36.36 (81.65 kg, 149.86 cm) ld1 Marley Coma Score: 18:10 Eye Response: spontaneous(4). Verbal Response: oriented(5). Motor Response: obeys ld1 commands(6). Total: 15. ED Course: 17:58 Patient arrived in ED. am2 18:00 Jackson Quintana PA is PHCP. cp 18:00 Manav Molina DO is Attending Physician. cp 18:10 Triage completed. ld1 18:10 Arm band placed on right wrist. ld1 19:01 Initial lab(s) drawn, by me, sent to lab. Inserted saline lock: 22 gauge in left iw antecubital area, using aseptic technique. Blood collected. 19:28 Eyad Ngo, RN is Primary Nurse. as6 20:11 COVID-19/FLU A+B Sent. mb9 20:11 Urine Microscopic Only Sent. mb9 23:19 Bed in low position. Call light in reach. Side rails up X2. as6 23:20 No provider procedures requiring assistance completed. IV discontinued, intact, as6 bleeding controlled, No redness/swelling at site. Pressure dressing applied. Administered Medications: 20:26 Drug: D50W 50 ml Route: IVP; Site: left antecubital; iw 20:58 Follow up: Response: No adverse reaction mb9 20:26 Drug: Potassium Effervescent Tablet 50 mEq Route: PO; iw 20:58 Follow up: Response: No adverse reaction mb9 20:27 Drug: Ativan (LORazepam) 0.5 mg Route: IVP; Site: left antecubital; iw 20:58 Follow up: Response: No adverse reaction mb9 20:58 Drug: Rocephin (cefTRIAXone) 1 grams Route: IV; Rate: calculated rate; Site: left mb9 antecubital; 23:20 Follow up: Response: No adverse reaction; IV Status: Completed infusion; IV Intake: [id number] 22:42 Drug: Potassium Effervescent Tablet 50 mEq Route: PO; mb9 23:20 Follow up: Response: No adverse reaction as6 Medication: 19:01 VIS not applicable for this client. iw Intake: 23:20 IV: 50ml; Total: 50ml. as6 Outcome: 23:05 Discharge ordered by MD. cp 23:19 Discharged to home ambulatory, with family. as6 23:19 Condition: stable 23:19 Discharge instructions given to patient, Instructed on discharge instructions, follow up and referral plans. medication usage, Demonstrated understanding of instructions, follow-up care, medications, Prescriptions given X 4. 23:21 Patient left the ED. as6 Signatures: Zoila Pierson, RN RN iw Jackson Quintana PA PA Venice Mckay am2 Nazia Chen RN RN ld1 Eyad Ngo RN RN as6 Katt Jones RN RN mb9
--- NOTE | 2022-09-26 23:06 | EDPHYS ---
Physician Documentation [facility] Name: Keena Roberson Age: 42 yrs Sex: Female : 1980 Arrival Date: 09/26/2022 Time: 17:58 Bed 4 Private MD: ED Physician Manav Molina HPI: 09/26 18:22 This 42 yrs old Female presents to ER via Wheelchair with complaints of Near cp Syncope, Probable Seizure, General Weakness. 18:22 The patient has experienced near-syncope, felt faint. cp 18:22 Onset: The symptoms/episode began/occurred today, after receiving message. cp 18:22 Duration: This was a single episode, that is still ongoing. Associated injury: The cp patient did not suffer any apparent associated injury. Associated signs and symptoms: Pertinent positives: headache, weakness, left leg shaking, Pertinent negatives: abdominal pain, chest pain, numbness, palpitations, tingling, vomiting. 18:22 Current symptoms: headache, general weakness. 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 - Social history:: Smoking status: Patient reports the use of cigarette tobacco products, denies chronic smoking, but will smoke occasionally, Patient/guardian denies using alcohol. ROS: 18:30 Constitutional: Positive for body aches, Negative for fever, poor PO intake. cp 18:30 Cardiovascular: Negative for chest pain, edema, palpitations. cp 18:30 Respiratory: Negative for cough, shortness of breath, wheezing. 18:30 Eyes: Negative for injury, pain, redness, and discharge. cp 18:30 ENT: Negative for drainage from ear(s), ear pain, sore throat, difficulty swallowing, difficulty handling secretions. 18:30 Abdomen/GI: Negative for abdominal pain, vomiting, diarrhea, constipation. 18:30 : Negative for urinary symptoms. 18:30 Skin: Negative for rash. 18:30 Neuro: Positive for headache, near syncope, general weakness, Negative for altered mental status, numbness, syncope, focal weakness. 18:30 All other systems are negative. Exam: 18:33 Constitutional: The patient appears in no acute distress, alert, awake, cp non-diaphoretic, non-toxic, well developed, well nourished, anxious. 18:33 Head/Face: Normocephalic, atraumatic. cp 18:33 Eyes: Periorbital structures: appear normal, Pupils: equal, round, and reactive to light and accomodation, Extraocular movements: intact throughout, Conjunctiva: normal, no exudate, no injection, Sclera: no appreciated abnormality, Lids and lashes: appear normal, bilaterally. 18:33 ENT: External ear(s): are unremarkable, Nose: is normal, Mouth: Lips: moist, Oral mucosa: pink and intact, moist, Posterior pharynx: Airway: no evidence of obstruction, patent, swelling, is not appreciated, erythema, is not appreciated, exudate, is not appreciated. 18:33 Neck: ROM/movement: is normal, is supple, without pain, no range of motions limitations, no nuchal rigidity. 18:33 Chest/axilla: Inspection: normal. 18:33 Cardiovascular: Rate: normal, Rhythm: regular, Edema: is not appreciated, JVD: is not appreciated. 18:33 Respiratory: the patient does not display signs of respiratory distress, Respirations: normal, no use of accessory muscles, no retractions, labored breathing, is not present, Breath sounds: are clear throughout, no decreased breath sounds, no stridor, no wheezing. 18:33 Abdomen/GI: Inspection: abdomen appears normal, Palpation: abdomen is soft and non-tender, in all quadrants. 18:33 Back: ROM is normal, CVA tenderness, is absent. 18:33 Skin: cellulitis, is not appreciated, no rash present. 18:33 Neuro: Orientation: to person, place \T\ time. Mentation: able to follow commands, Motor: moves all fours, strength is normal, Sensation: is normal. 19:26 ECG was reviewed by the Attending Physician. cp Vital Signs: 18:08 BP 117 / 84; Pulse 81; Resp 18; Temp 98.3(O); Pulse Ox 100% on R/A; Weight 81.65 kg; ld1 Height 4 ft. 11 in. (149.86 cm); Pain 8/10; 20:28 BP 126 / 76; Pulse 83; Resp 17; Pulse Ox 98% on R/A; iw 21:01 BP 127 / 80; Pulse 84; Resp 16; Pulse Ox 100% ; mb9 23:19 BP 112 / 71; Pulse 78; Resp 20 S; Pulse Ox 100% on R/A; as6 18:08 Body Mass Index 36.36 (81.65 kg, 149.86 cm) ld1 [place] Coma Score: 18:10 Eye Response: spontaneous(4). Verbal Response: oriented(5). Motor Response: obeys ld1 commands(6). Total: 15. MDM: 18:11 Patient medically screened. cp 23:05 Data reviewed: vital signs, nurses notes, lab test result(s), EKG, radiologic studies, cp CT scan, plain films, ultrasound. 23:05 Differential Diagnosis: cardiac arrhythmia, drug effect, pseudo seizure, seizure, cp anxiety. Consideration of Admission/Observation Escalation of care including admission/observation considered. I considered the following discharge prescriptions or medication management in the emergency department Medications were administered in the Emergency Department. See MAR. Counseling: I had a detailed discussion with the patient and/or guardian regarding: the historical points, exam findings, and any diagnostic results supporting the discharge/admit diagnosis, lab results, radiology results, the need for outpatient follow up, a family practitioner, to return to the emergency department if symptoms worsen or persist or if there are any questions or concerns that arise at home. Response to treatment: the patient's symptoms have markedly improved after treatment, and as a result, I will discharge patient. 09/26 18:19 Order name: Basic Metabolic Panel cp 09/26 18:19 Order name: CBC with Diff cp 09/26 18:19 Order name: Magnesium cp 09/26 18:19 Order name: PT-INR cp 09/26 18:19 Order name: EKG; Complete Time: 18:20 cp 09/26 18:19 Order name: Cardiac monitoring; Complete Time: 19:22 cp 09/26 18:19 Order name: EKG - Nurse/Tech; Complete Time: 19:22 cp 09/26 18:19 Order name: IV Saline Lock; Complete Time: 19:22 cp 09/26 18:19 Order name: Labs collected and sent; Complete Time: 19:22 cp 09/26 18:19 Order name: O2 Per Protocol; Complete Time: 19:22 cp 09/26 18:19 Order name: O2 Sat Monitoring; Complete Time: 19:22 cp 09/26 18:19 Order name: Urine Test (obtain specimen); Complete Time: 20:11 cp 09/26 18:19 Order name: Urine Dipstick-Ancillary (obtain specimen); Complete Time: 20:11 cp 09/26 18:19 Order name: COVID-19/FLU A+B cp 09/26 18:19 Order name: Urine Microscopic Only cp 09/26 18:19 Order name: UDS cp 09/26 18:32 Order name: CT Head Brain wo Cont cp 09/26 19:15 Order name: CBC with Automated Diff; Complete Time: 19:43 EDMS 09/26 19:43 Interpretation: Normal except: MPV 6.3. cp 09/26 19:16 Order name: CT; Complete Time: 19:43 EDMS 09/26 19:19 Order name: Protime (+INR); Complete Time: 19:43 EDMS 09/26 19:41 Order name: Basic Metabolic Panel; Complete Time: 19:43 EDMS 09/26 19:43 Interpretation: Normal except: K 2.8; GLUC 70; BUN 20. cp 09/26 19:41 Order name: Magnesium; Complete Time: 20:23 EDMS 09/26 20:12 Order name: Urine Dipstick-Ancillary; Complete Time: 20:23 EDMS 09/26 20:23 Interpretation: Normal except: UBLD 3+; UPROT 2+; UESTR Trace. cp 09/26 20:24 Order name: Diet Regular; Complete Time: 20:24 cp 09/26 20:25 Order name: Urine Microscopic Only; Complete Time: 20:44 EDMS 09/26 20:44 Interpretation: Normal except: UWBC 20-50; URBC 11-20; UBACT 20-50; MUCUS 4+. cp 09/26 20:25 Order name: Urine Drug Screen; Complete Time: 20:44 EDMS 09/26 20:48 Order name: Urine --Ancillary (enter results) 09/26 20:53 Order name: COVID-19/FLU A+B; Complete Time: 22:28 EDMS 09/26 20:57 Order name: Urine --Ancillary; Complete Time: 22:28 EDMS 09/26 22:28 Interpretation: Reviewed. cp 09/26 21:02 Order name: Glucose, Ancillary Testing; Complete Time: 22:28 EDMS 09/26 22:28 Interpretation: Reviewed. cp 09/26 21:16 Order name: US Extremity Venous Unilateral Ltd cp 09/26 22:29 Order name: Accucheck Blood Glucose; Complete Time: 22:42 cp 09/26 22:57 Order name: Glucose, Ancillary Testing EDMS EC:26 Rate is 82 beats/min. Rhythm is regular. [place] interval is normal. QRS interval is normal. cp QT interval is normal. T waves are Inverted in lead aVR. Interpreted by me. Reviewed by me. Administered Medications: 20:26 Drug: D50W 50 ml Route: IVP; Site: left antecubital; iw 20:58 Follow up: Response: No adverse reaction mb9 20:26 Drug: Potassium Effervescent Tablet 50 mEq Route: PO; iw 20:58 Follow up: Response: No adverse reaction mb9 20:27 Drug: Ativan (LORazepam) 0.5 mg Route: IVP; Site: left antecubital; iw 20:58 Follow up: Response: No adverse reaction mb9 20:58 Drug: Rocephin (cefTRIAXone) 1 grams Route: IV; Rate: calculated rate; Site: left mb9 antecubital; 23:20 Follow up: Response: No adverse reaction; IV Status: Completed infusion; IV Intake: [id number] 22:42 Drug: Potassium Effervescent Tablet 50 mEq Route: PO; mb9 23:20 Follow up: Response: No adverse reaction as6 Disposition Summary: 09/26/22 23:05 Discharge Ordered Location: Home cp Problem: new cp Symptoms: have improved cp Condition: Stable cp Diagnosis - UTI/ Urinary tract infection, site not specified cp - Hypokalemia cp - Headache cp - Weakness cp - Low back pain cp - Pain in left leg cp Followup: cp - With: Private Physician - When: 2 - 3 days - Reason: Recheck today's complaints Discharge Instructions: - Discharge Summary Sheet cp - Acute Back Pain, Adult cp - Musculoskeletal Pain cp - Urinary Tract Infection, Adult cp - Weakness cp - Hypokalemia cp - Back Exercises cp Forms: - Medication Reconciliation Form cp - Thank You Letter cp - Antibiotic Education cp - Prescription Opioid Use cp Prescriptions: - Ibuprofen 800 mg Oral Tablet - take 1 tablet by ORAL route every 8 hours As needed take with food; 30 tablet; cp Refills: 0, Product Selection Permitted - Potassium Chloride 10 mEq Oral capsule, extended release - take 2 tablet by ORAL route once daily for 3 days; 6 tablet; Refills: 0, cp Product Selection Permitted - Cyclobenzaprine 10 mg Oral Tablet - take 1 tablet by ORAL route every 8 hours As needed; 20 tablet; Refills: 0, cp Product Selection Permitted - cefpodoxime 200 mg Oral Tablet - take 1 tablet by ORAL route every 12 hours for 7 days with food; 14 tablet; cp Refills: 0, Product Selection Permitted Addendum: 09/29/2022 18:38 Co-signature as Attending Physician, Manav PEREZ was immediately available on-site m s3 in the Emergency Department for consultation in the care of the patient. Signatures: Dispatcher [employer] EDMS Zoila Pierson RN RN Jackson Bonilla PA PA cp Manav Molina DO DO ms3 Nazia Chen RN RN ld1 Katt Jones RN RN mb9 Eyad Ngo RN as6 Corrections: (The following items were deleted from the chart) 09/27 22:54 09/26 18:22 Associated signs and symptoms: Pertinent positives: weakness, left leg cp shaking, cp
--- NOTE | 2022-09-27 15:11 | RAD REPORT ---
EXAM DESCRIPTION: US - Extremity Venous Uni Ltd - 09/26/2022 11:00 pm CLINICAL HISTORY: Pain. TECHNIQUE: Left lower extremity venous Doppler. COMPARISON: None. FINDINGS: The left common femoral vein, superficial femoral vein, popliteal vein, great saphenous ve in and proximal calf veins demonstrate normal compressibility and color flow. No deep vein thrombosis is demonstrated. IMPRESSION: Normal. Electronically signed by: Adarsh Fierro MD 09/26/2022 11:46 PM AURICULOTHERAPIST Due to temporary technical issues with the PACS/Fluency reporting system, reports are being signed by the in house radiologists without review as a courtesy to insure prompt reporting. The interpreting radiologist is fully responsible for the content of the report.
--- NOTE | 2022-09-29 16:47 | EKG ---
Test Date: 2022-09-26 Test Time: 19:20:52 Engineer/Conductor: MEASUREMENT RESULTS: Intervals: Rate: 82 VA: 160 QRSD: 88 QT: 398 QTc: 464 Monument: P: 62 VA: 160 QRS: 59 T: 38 INTERPRETIVE STATEMENTS: Normal sinus rhythm Normal ECG Compared to ECG 02/20/2012 14:55:57 No significant changes Electronically Signed On 09-29-22 16:39:49 UX SPECIALIST by Edis Tovar
== END 2022-09-26 23:21 | disposition home or self-care (01) ==
LOC: ER 17:56
DX: N39.0 Urinary tract infection, site not specified (principal); E87.6 Hypokalemia; R53.1 Weakness; M54.50 Low back pain, unspecified; M79.605 Pain in left leg; Z20.822 Contact with and (suspected) exposure to COVID-19; F17.210 Nicotine dependence, cigarettes, uncomplicated; Z88.5 Allergy status to narcotic agent; Z88.8 Allergy status to other drugs, medicaments and biological substances
CPT/HCPCS: 96365; 87088; 85025; 87086; 80048; 36415; 83735; 81025; 85610; 82947 ×2; 0240U; 80307; 70450; 93971; 96375; 99284; 96366; 81003; 81015; 93005